=== PATIENT | male | born 1965 | race Caucasian/White ===

== ENCOUNTER 2016-11-13 08:06 | Outpatient (CLI) | payer OTHER | END 2016-11-13 23:00 | LOC: LAB SRH 08:06 | DX: Z00.00 Encounter for general adult medical examination without abnormal findings (principal) | CPT/HCPCS: 90047; 90074; 90648; 92690; 93140; 95059 ==

== ENCOUNTER 2017-01-28 11:41 | Outpatient (CLI) | payer OTHER | END 2017-01-28 23:00 | LOC: LAB SRH 11:41 | DX: D64.9 Anemia, unspecified (principal); E03.9 Hypothyroidism, unspecified | CPT/HCPCS: 90074; 90648; 91282; 91504; 92668; 92670; 93140; 95059 ==